=== PATIENT | female | born 1995 | race Caucasian/White ===

== ENCOUNTER 2016-08-27 10:53 | Emergency (ER) | payer SELFPAY ==
[2016-08-27 11:46] VITALS: BMI 29.2
[2016-08-27 12:06] VITALS: BP 123/85; PULSE 71; RESP 16; TEMP 98; O2SAT 100
--- NOTE | 2016-08-27 12:08 | C.PDOC ---
History Of Present Illness 20 yr old female presents to the ER stating she was cleaning her right ear with Q-Tip [employer] and noticed the cotton tip came off. Patient denies discharge from the ear, headache or neck pain. Time Seen by Provider: 08/27/16 11:56 Chief Complaint (Nursing): Foreign Body History Per: Patient History/Exam Limitations: None Onset/Duration Of Symptoms: Sudden Onset ([employer]) Past Medical History Reviewed: Historical Data, Nursing Documentation, Vital Signs Vital Signs: Last Vital Signs Temp 98.0 F 08/27/16 11:54 Pulse 71 08/27/16 11:54 Resp 16 08/27/16 11:54 BP 123/85 08/27/16 11:54 Pulse Ox 100 08/27/16 12:10 Family History: States: No Known Family Hx - Social History Hx Alcohol Use: No Hx Substance Use: No - Immunization History Hx Tetanus Toxoid Vaccination: No Hx Influenza Vaccination: No Hx Pneumococcal Vaccination: No Review Of Systems Except As Marked, All Systems Reviewed And Found Negative. ENT: Positive for: Ear Pain (right). Negative for: Ear Discharge Musculoskeletal: Negative for: Neck Pain Neurological: Negative for: Headache Physical Exam - Physical Exam Appears: Non-toxic, No Acute Distress Skin: Warm, Dry Head: Atraumatic, Normacephalic Ear(s): Left: Normal, Right: Other (Forigen body visulized ) Oral Mucosa: Moist Extremity: Normal ROM, No Swelling Neurological/Psych: Oriented x3, Normal Speech, Normal Motor ED Course And Treatment O2 Sat by Pulse Oximetry: 100 Medical Decision Making Medical Decision Making: NOTE: Cotton tip removed with alligator forceps. No trauma to the ear canal. No bleeding. Disposition - Disposition Disposition: HOME/ ROUTINE Disposition Time: 12:35 Condition: GOOD Additional Instructions: Please follow up with your doctor. Return to the ER for any worsening symptoms, ear pain, discharge, hearing loss, or for any other concerns. Forms: General Discharge Instructions - Clinical Impression Clinical Impression: Foreign body in ear - Scribe Statement The provider has reviewed the documentation as recorded by the Reedibe Veronica Paniagua Provider Attestation: All medical record entries made by the Reediblibby were at my direction and personally dictated by me. I have reviewed the chart and agree that the record accurately reflects my personal performance of the history, physical exam, medical decision making, and the department course for this patient. I have also personally directed, reviewed, and agree with the discharge instructions and disposition.
== END 2016-08-27 12:35 | disposition home or self-care (01) ==
LOC: C.ER 10:53
DX: T16.1XXA Foreign body in right ear, initial encounter (principal); X58.XXXA Exposure to other specified factors, initial encounter; Y92.009 Unspecified place in unspecified non-institutional (private) residence as the place of occurrence of the external cause